=== PATIENT | female | born 1990 | race Caucasian/White ===

== ENCOUNTER 2019-07-25 14:27 | Day surgery (SDC) | payer OTHER ==
[2019-07-25 10:37] VITALS: BMI 25.5
[2019-07-25] MEDS ORDERED: oxyCODONE HCL 5 MG TABLET PO PRN (15:30)
[2019-07-25] MEDS ORDERED: ONDANSETRON 4 MG/2 ML VIAL IVPUSH PRN (15:30)
[2019-07-25] MEDS ORDERED: LACTATED RINGERS SOLUTION 1,000 ML IV SCH (15:30)
[2019-07-25] MEDS ORDERED: MIDAZOLAM HCL 2 MG/2 ML SINGLE DOSE VIAL ONE ×2 (15:31→16:00)
[2019-07-25] MEDS ORDERED: PROPOFOL 20 ML ONE (15:31)
[2019-07-25] MEDS ORDERED: ceFAZolin SODIUM 1 GM VIAL ONE (16:00)
[2019-07-25] MEDS ORDERED: BUPIVACAINE HCL 0.25% 125 MG/50 ML VIAL ONE (16:00)
[2019-07-25] MEDS ORDERED: BUPIVACAINE HCL/PF 0.25% (2.5MG/ML) 10 ML VIAL IJ ONE (16:08)
[2019-07-25] MEDS ORDERED: KETOROLAC TROMETHAMINE 30 MG/1 ML VIAL ONE (16:31)
[2019-07-25 16:53] VITALS: TEMP 97.9
[2019-07-25 17:38] VITALS: BP 124/70; PULSE 71
--- NOTE | 2019-07-25 17:42 | OP ---
DATE OF OPERATION: 07/25/2019 PREOPERATIVE DIAGNOSIS: 1. Left long finger distal phalanx intraarticular fracture. 2. Left long finger mallet finger. POSTOPERATIVE DIAGNOSIS: 1. Left long finger distal phalanx intraarticular fracture. 2. Left long finger mallet finger. OPERATIVE PROCEDURE: 1. Closed reduction and fixation of distal phalanx intraarticular fracture, left long finger. 2. Percutaneous pinning and closed treatment of left long finger mallet finger. SURGEON: Korey Hendricks MD SENIOR IOS DEVELOPER: RENETTA Cox ANESTHESIA: Local with sedation. COMPLICATIONS: None. ESTIMATED BLOOD LOSS: Minimal. INDICATION FOR PROCEDURE: The patient is a 29-year-old female with the above findings, indicated for operative treatment. The risks, benefits and alternatives were discussed with the patient at length and proper informed consent was obtained. DESCRIPTION OF PROCEDURE: After proper identification of the patient and the correct operative site, the patient was brought to the operating room and placed supine on the operating table with all prominences well padded. Sedation with local anesthesia was given. The left upper extremity was prepped and draped in the usual sterile fashion. A well-padded tourniquet was placed after sterile prep. A percutaneous clamp was used to reduce the fracture. Once it was properly reduced and confirmed radiographically, three K-wires were placed across the fracture site, securing the fracture. Two of these K-wires were 0.6-mm K-wires and one was a 0.8-mm K-wire. The finger was then brought into full extension to correct the mallet finger and a K-wire was placed across the joint from the tip of the finger percutaneously. This held the finger in full extension. X-rays were taken and confirmed proper reduction of the fracture and mallet finger. Proper placement and size of all hardware were also confirmed. Pins were cut short and bent outside of the skin. Sterile dressings were applied. The patient was reversed from anesthesia and brought to the recovery room in stable condition. She tolerated the procedure well. Jona Gallegos, the collections assistant, was integral throughout the procedure. The procedure could not have been performed without a skilled operative collections assistant. KOREY HENDRICKS M.D. INGRID/[id number]
== END 2019-07-25 17:45 | disposition home or self-care (01) ==
LOC: FASU 14:27
PROVIDERS: ATTEND Orthopaedic Surgery Hand Surgery
PROC: 0PSV34Z Reposition Left Finger Phalanx with Internal Fixation Device, Percutaneous Approach (ICD-10-PCS; principal; 2019-07-25 16:12)
DX: S62.633A Displaced fracture of distal phalanx of left middle finger, initial encounter for closed fracture (principal); M20.012 Mallet finger of left finger(s); X58.XXXA Exposure to other specified factors, initial encounter; Y93.9 Activity, unspecified; Y92.9 Unspecified place or not applicable
CPT/HCPCS: 73130-TC-LT-FY; 84703

== ENCOUNTER 2022-11-23 11:32 | Emergency (ER) | payer OTHER ==
[2022-11-23 12:05] VITALS: BP 120/80; PULSE 77; RESP 20; TEMP 98; BMI 27.4
== END 2022-11-23 12:00 | disposition home or self-care (01) ==
LOC: FER 11:32
DX: S51.852A Open bite of left forearm, initial encounter (principal); W54.0XXA Bitten by dog, initial encounter; Y92.59 Other trade areas as the place of occurrence of the external cause
CPT/HCPCS: 99283-25